=== PATIENT | female | born 1985 | race American Indian/Alaskan Native ===

== ENCOUNTER 2019-05-31 18:04 | Emergency (ER) | payer MEDICAID ==
--- NOTE | 2019-05-31 18:54 | Event Note ---
ED Screening Note Date of service: 05/31/19 Time: 18:53 ED Screening Note: 33 yo F with right sided pelvic pain x 2 days. Denies vaginal discharge, bleeding, frequency, dysuria. LMP 03/31/19. This initial assessment/diagnostic orders/clinical plan/treatment(s) is/are subject to change based on patients health status, clinical progression and re- assessment by fellow clinical providers in the ED. Further treatment and workup at subsequent clinical providers discretion. Patient/guardian urged not to elope from the ED as their condition may be serious if not clinically assessed and managed. Initial orders include: UA UPT
[2019-05-31 19:55] LABS: Bilirubin,Urine NEG (Negative); Blood,Urine SM (Negative); Color,Urine Yellow (Yellow); HCG Qualitative,Urine Negative (Negative); Mucus,Urine 3+ /HPF; Protein,Urine <15 mg/dL mg/dL (Negative)
--- NOTE | 2019-05-31 23:25 | Emergency Department Report ---
ED Female HPI - General Chief complaint: Urogenital-Female Stated complaint: PELVIC PAIN, VAGINAL BURNING Time Seen by Provider: 05/31/19 22:16 Source: patient Mode of arrival: Ambulatory Limitations: No Limitations - History of Present Illness Initial comments: Patient is a 33-year-old female presents emergency room with complaints of pelvic pain that began 2 days ago. She has associated vaginal burning. She denies any dysuria, vaginal discharge, lesions or blisters, abdominal pain, fever, nausea, vomiting, diarrhea, urinary symptoms. She denies any past medical history. She denies any allergies medications. She states her last menstrual cycle was March 31, 2019. she states she took a test at home and it was negative. - Related Data Allergies Allergy/AdvReac Type Severity Reaction Status Date / Time No Known Allergies Allergy Unverified 05/31/19 18:17 ED Review of Systems ROS: Stated complaint: PELVIC PAIN, VAGINAL BURNING Other details as noted in HPI Comment: All other systems reviewed and negative ED Past Medical Hx - Past Medical History Previous Medical History?: No - Surgical History Past Surgical History?: No - Social History Smoking Status: Never Smoker Substance Use Type: Alcohol ED Physical Exam - General Limitations: No Limitations General appearance: alert, in no apparent distress - Head Head exam: Present: atraumatic, normocephalic - Eye Eye exam: Present: normal appearance - ENT ENT exam: Present: mucous membranes moist - Respiratory Respiratory exam: Present: normal lung sounds bilaterally. Absent: respiratory distress, wheezes, rales, rhonchi, stridor, chest wall tenderness, accessory muscle use, decreased breath sounds, prolonged expiratory - Cardiovascular Cardiovascular Exam: Present: regular rate, normal rhythm, normal heart sounds. Absent: systolic murmur, diastolic murmur, rubs, gallop - GI/Abdominal GI/Abdominal exam: Present: soft, normal bowel sounds. Absent: distended, tenderness, guarding, rebound, rigid - External exam: Present: normal external exam. 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 Absent: erythema, vaginal bleeding, foreign body, tissue, laceration Bi-manual exam: Present: adnexal tenderness (right sided). Absent: cervical motion tendernes, adnexal mass - Neurological Exam Neurological exam: Present: alert, oriented X3 - Psychiatric Psychiatric exam: Present: normal affect, normal mood - Skin Skin exam: Present: warm, dry, intact ED Course Vital Signs 05/31/19 06/01/19 18:48 01:44 Temperature 98.4 F Pulse Rate 81 86 Respiratory 18 18 Rate Blood Pressure 109/68 Blood Pressure 112/76 [Left] O2 Sat by Pulse 98 100 Oximetry ED Medical Decision Making - Lab Data Lab Results 05/31/19 Range/Units 19:30 Urine Color Yellow (Yellow) Urine Turbidity Slightly-cloudy (Clear) Urine pH 6.0 (5.0-7.0) Ur Specific [place] 1.033 H (1.003-1.030) Urine Protein <15 mg/dl (Negative) mg/dL Urine Glucose (UA) Neg (Negative) mg/dL Urine Ketones Neg (Negative) mg/dL Urine Blood Sm (Negative) Urine Nitrite Neg (Negative) Urine Bilirubin Neg (Negative) Urine Urobilinogen 2.0 (<2.0) mg/dL Ur Leukocyte Esterase Neg (Negative) Urine WBC (Auto) 3.0 (0.0-6.0) /HPF Urine RBC (Auto) 9.0 (0.0-6.0) /HPF U Epithel Cells (Auto) 4.0 (0-13.0) /HPF Urine Mucus 3+ /HPF Urine HCG, Qual Negative (Negative) - Radiology Data Radiology results: report reviewed Pelvic Ultrasound HISTORY: right adnexal TTP. TECHNIQUE: Grayscale and color Doppler imaging performed. COMPARISON: None FINDINGS: Transabdominal and endovaginal imaging was performed. Uterus measures 8.2 x 4.0 x 5.6 cm with endometrial echo complex measuring 1.4 cm. Tiny nabothian cyst is identified. Left ovary is not visualized. The right ovary appears unremarkable. No pelvic free fluid identified. IMPRESSION: 1. Left ovary not visualized on this exam. Otherwise nothing acute identified. 2. Mild thickening of the endometrial complex can be normal depending on stage in cycle and correlation with history is recommended. Signer Name: Kavon Kong MD Signed: 06/01/2019 12:20 AM Workstation Name: [id number] Transcribed By: MARION Dictated By: Kavon Kong MD Electronically Authenticated By: Kavon Kong MD Signed Date/Time: 06/01/1919 DD/ 0018 TD/TT: - Medical Decision Making Patient is a 33-year-old female presents emergency room with complaints of pelvic pain that began 2 days ago. She has associated vaginal burning. She denies any dysuria, vaginal discharge, lesions or blisters, abdominal pain, fever, nausea, vomiting, diarrhea, urinary symptoms. She denies any past medical history. She denies any allergies medications. She states her last menstrual cycle was March 31, 2019. she states she took a test at home and it was negative. vitals are normal. on exam: clear mucus vaginal/cervix discharge, right adnexal TTP, shaper machine hand: LUISA mckeon. urine preg negative. UA without evidence of UTI. wet prep is normal. G/C swab sent, offered pt prophylactic tx and she politely declined and states she would like to wait until her results come back to see if she needs treatment. due to adnexal TTP, US pelvis performed and shows: 1. Left ovary not visualized on this exam. Otherwise nothing acute identified.2. Mild thickening of the endometrial complex can be normal depending on stage in cycle and correlation with history is recommended. Discussed results with patient and advised patient that she would need to be seen by an CT SCAN TECHNICIAN for endometrial thickening. She verbalized understanding. advised pt Please follow-up with an CT SCAN TECHNICIAN in the next 2-3 days. Please have a full STD panel performed by the CT SCAN TECHNICIAN. 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 avoid sexual intercourse until you have been tested. have partner tested and treated as well. Please follow-up with a primary care doctor. May take Tylenol or ibuprofen for any discomfort. Return to the emergency room for any new or worsening symptoms. - Differential Diagnosis PID, TOA, ovarian torsion, UTI, IUP, STD, ectopic, vaginitis, BV, yeast Critical care attestation.: If time is entered above; I have spent that time in minutes in the direct care of this critically ill patient, excluding procedure time. ED Disposition Clinical Impression: Pelvic pain, Vaginal burning, Endometrial thickening on ultrasound Disposition: TO HOME OR SELFCARE Is pt being admited?: No Does the pt Need Aspirin: No Condition: Stable Additional Instructions: Please follow-up with an CT SCAN TECHNICIAN in the next 2-3 days. Please have a full STD panel performed by the CT SCAN TECHNICIAN. 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 avoid sexual intercourse until you have been tested. have partner tested and treated as well. Please follow-up with a primary care doctor. May take Tylenol or ibuprofen for any discomfort. Return to the emergency room for any new or worsening symptoms. Referrals: RUDDY FERNANDEZ [Other] - 2-[address] [facility] [Provider Group] - 2-[address] [facility] [Provider Group] - 2-3 Days [facility] [Provider Group] - 2-3 Days Time of Disposition: 01:03 Print Language: KENYAN
--- NOTE | 2019-06-01 00:24 | Ultrasound Report ---
Pelvic Ultrasound HISTORY: right adnexal TTP. TECHNIQUE: Grayscale and color Doppler imaging performed. COMPARISON: None FINDINGS: Transabdominal and endovaginal imaging was performed. Uterus measures 8.2 x 4.0 x 5.6 cm with endometrial echo complex measuring 1.4 cm. Tiny nabothian cys t is identified. Left ovary is not visualized. The right ovary appears unremarkable. No pelvic free f luid identified. IMPRESSION: 1. Left ovary not visualized on this exam. Otherwise nothing acute identified. 2. Mild thickening of the endometrial complex can be normal depending on stage in cycle and correlati on with history is recommended. Signer Name: Kavon Kong MD Signed: 06/01/2019 12:20 AM Workstation Name: [id number]
[2019-06-01 01:45] VITALS: BP 112/76
== END 2019-06-01 01:45 | disposition home or self-care (01) ==
LOC: ED 18:04
DX: N89.8 Other specified noninflammatory disorders of vagina (principal); R10.2 Pelvic and perineal pain; R93.89 Abnormal findings on diagnostic imaging of other specified body structures; F10.10 Alcohol abuse, uncomplicated
CPT/HCPCS: 76830; 76856; 81001; 81025; 87210; 87591

== ENCOUNTER 2019-12-18 19:48 | Emergency (ER) | payer MEDICAID ==
[2019-12-18 20:14] VITALS: BP 117/77
[2019-12-19] MEDS ORDERED: ACETAMINOPHEN 500 MG TAB PO ONE (01:37)
[2019-12-19] MEDS ORDERED: BENZONATATE 100 MG CAP PO ONE (01:37)
[2019-12-19] MEDS ORDERED: LIDOCAINE VISCOUS 2% 15 ML ORAL LIQD MM ONE (01:38)
--- NOTE | 2019-12-19 02:08 | XRay Report ---
CHEST 2 VIEWS INDICATION / CLINICAL INFORMATION: cough. COMPARISON: None available. FINDINGS: SUPPORT DEVICES: None. HEART / MEDIASTINUM: No significant abnormality. LUNGS / PLEURA: No significant pulmonary or pleural abnormality. No pneumothorax. ADDITIONAL FINDINGS: No significant additional findings. IMPRESSION: 1. No acute findings. Signer Name: Renetta Sheth MD Signed: 12/19/2019 2:04 AM Workstation Name: [id number]
--- NOTE | 2019-12-19 02:29 | Emergency Department Report ---
Upper Respiratory HPI - HPI Chief Complaint: Sore Throat Stated Complaint: SORE THROAT/BODYACHES/CONGESTION Time Seen by Provider: 12/19/19 00:48 Duration: 2 Days URI Symptoms: Rhinorrhea: Yes, Sore Throat: Yes, Ear Pain: No, Cough: Yes, Shortness of Breath: Yes, Sick Contacts: No, Unable to Take Fluids: No, Urine Output Abnormal: No, Listless Behavior: No Other History: This is a 34-year-old female nontoxic, well nourished in appearance, no acute signs of distress presents to the ED with c/o of productive cough, subective fever, chills, body aches, rhinorrhea, some mild SOB, sore throat, nasal congestion x2 days. Patient describes productive cough as yellow mucus production. Patient denies any sick contacts. Patient denies any recent travels, long car, recent hospital stays. Patient denies any calf pain or calf tenderness. Patient denies any chest pain, nausea, vomiting, hemoptysis, numbness, tingling, headache or stiff neck. Denies any allergies. - Home Meds and Allergies Home Medications: Previous Rx's Medication Instructions Recorded Last Taken Type Acetaminophen [Acetaminophen 8 650 mg PO Q8H PRN #20 tablet.er 12/19/19 Unknown Rx Hour] Azithromycin [Zithromax Z-LUZMARIA] 250 mg PO DAILY #6 tablet 12/19/19 Unknown Rx Benzonatate [Tessalon Perles] 100 mg PO Q8HR PRN #12 capsule 12/19/19 Unknown Rx Allergies/Adverse Reactions: Allergies Allergy/AdvReac Type Severity Reaction Status Date / Time No Known Allergies Allergy Unverified 05/31/19 18:17 ED Review of Systems ROS: Stated complaint: SORE THROAT/BODYACHES/CONGESTION Other details as noted in HPI Constitutional: chills, fever Eyes: denies: eye pain, eye discharge, vision change ENT: throat pain, congestion. denies: ear pain Respiratory: cough, shortness of breath. denies: wheezing Cardiovascular: denies: chest pain, palpitations Endocrine: no symptoms reported Gastrointestinal: denies: abdominal pain, nausea, diarrhea Genitourinary: denies: urgency, dysuria, discharge Musculoskeletal: denies: back pain, joint swelling, arthralgia Skin: denies: rash, lesions Neurological: denies: headache, weakness, paresthesias Psychiatric: denies: anxiety, depression Hematological/Lymphatic: denies: easy bleeding, easy bruising ED Past Medical Hx - Past Medical History Previous Medical History?: No - Surgical History Past Surgical History?: No - Social History Smoking Status: Never Smoker Substance Use Type: None - Medications Home Medications: Home Medications Medication Instructions Recorded Confirmed Last Taken Type Acetaminophen [Acetaminophen 8 650 mg PO Q8H PRN #20 tablet.er 12/19/19 Unknown Rx Hour] Azithromycin [Zithromax Z-LUZMARIA] 250 mg PO DAILY #6 tablet 12/19/19 Unknown Rx Benzonatate [Tessalon Perles] 100 mg PO Q8HR PRN #12 capsule 12/19/19 Unknown Rx ED Bronchiolitis Physical Exam - Exam General: Vital signs noted. No distress. Alert and acting appropriately. Neurologic: Alert and oriented, no deficits. Musculoskeletal: Unremarkable. ED Bronchiolitis Tests - Testing Testing: CXR: Normal/Negative ED Physical Exam - General Limitations: No Limitations General appearance: alert, in no apparent distress - Head Head exam: Present: atraumatic, normocephalic - Eye Eye exam: Present: normal appearance - Expanded ENT Exam Expanded Ear exam: Present: normal external inspection Mouth exam: Present: normal external inspection. Absent: drooling, trismus, muffled voice Teeth exam: Present: normal inspection Throat exam: Positive: tonsillar erythema. Negative: tonsillomegaly, tonsillar exudate, R peritonsillar mass, L peritonsillar mass - Neck Neck exam: Present: normal inspection, full ROM. Absent: tenderness, meningismus, lymphadenopathy - Respiratory Respiratory exam: Present: normal lung sounds bilaterally. Absent: respiratory distress, wheezes, rales, rhonchi, stridor, chest wall tenderness, accessory muscle use, decreased breath sounds, prolonged expiratory - Cardiovascular Cardiovascular Exam: Present: regular rate, normal rhythm, normal heart sounds. Absent: bradycardia, tachycardia, irregular rhythm, systolic murmur, diastolic murmur, rubs, gallop - Extremities Exam Extremities exam: Present: normal inspection, full ROM - Back Exam Back exam: Present: normal inspection, full ROM. Absent: tenderness, CVA tenderness (R), CVA tenderness (L), muscle spasm, paraspinal tenderness, vertebral tenderness, rash noted - Neurological Exam Neurological exam: Present: alert, oriented X3, normal gait - Psychiatric Psychiatric exam: Present: normal affect, normal mood - Skin Skin exam: Present: warm, dry, intact, normal color. Absent: rash ED Course Vital Signs 12/18/19 20:11 Temperature 98.3 F Pulse Rate 86 Respiratory 20 Rate Blood Pressure 117/77 O2 Sat by Pulse 99 Oximetry - Reevaluation(s) Reevaluation #1: 12/19/19 02:27 Patient is speaking in full sentences with no signs of distress noted. ED Medical Decision Making - Radiology Data Referring Physician: ARIELLE FLOYD Patient Name: PIERO LOUIE Date of : 1985 Sex: Female Report Date: 2019-12-19 Report Status: [place] [address] XRay Report Signed Patient: PIERO LOUIE MR #: [id number] : 1985 Acct:[id number] Age/Sex: 34 / F ADM Date: 12/18/19 Loc: ED Attending Dr: Ordering Physician: ARIELLE FLOYD NP Date of Service: 12/19/19 Procedure(s): XR chest routine 2V Accession Number(s): [id number] cc: ARIELLE FLOYD NP Fluoro Time In Minutes: CHEST 2 VIEWS INDICATION / CLINICAL INFORMATION: cough. COMPARISON: None available. FINDINGS: SUPPORT DEVICES: None. HEART / MEDIASTINUM: No significant abnormality. LUNGS / PLEURA: No significant pulmonary or pleural abnormality. No pneumothorax. ADDITIONAL FINDINGS: No significant additional findings. IMPRESSION: 1. No acute findings. Signer Name: Renetta Sheth MD Signed: 12/19/2019 2:04 AM Workstation Name: [id number] Transcribed By: Dictated By: Renetta Sheth MD Electronically Authenticated By: Renetta Sheth MD Signed Date/Time: 12/19/19 0204 - Medical Decision Making This is a 34-year-old female that presents with suspected COVID and pharyngitis. Patient is stable and was examined by me. Chest x-ray has been obtained and dictated by radiologist with normal exam. Patient is notified of x-ray results with no questions noted. Patient was instructed and educated on signs and symptoms and to self quarantine and seek medical attention as soon as possible if symptoms worsen. PAtient refused Tylenol or any other treatment due to stated that her mom told her to see her PCP rather then getting treatment as it can worsen possible COVID. Patient was educated that Tylenol is safe for COVID but patient still refused. Unable to reevaluate patient due to patient signing AMA. At time time of signing AMA, the patient does not seem toxic or ill in appearance. No acute signs of distress noted. No further questions noted by the patient.nt. Critical care attestation.: If time is entered above; I have spent that time in minutes in the direct care of this critically ill patient, excluding procedure time. ED Disposition Clinical Impression: Suspected COVID-19 virus infection Pharyngitis Qualifiers: Pharyngitis/tonsillitis etiology: unspecified etiology Qualified Code(s): J02.9 - Acute pharyngitis, unspecified Disposition: - TO HOME OR SELFCARE Is pt being admited?: No Does the pt Need Aspirin: No Condition: Stable Instructions: COVID-19, Pharyngitis (ED) Additional Instructions: Follow-up with a primary care doctor in 3-5 days or if symptoms worsen and continue return to emergency room as soon as possible. Prescriptions: Acetaminophen [Acetaminophen 8 Hour] 650 mg PO Q8H PRN #20 tablet.er PRN Reason: cough/fever Benzonatate [Tessalon Perles] 100 mg PO Q8HR PRN #12 capsule PRN Reason: Cough Azithromycin [Zithromax Z-LUZMARIA] 250 mg PO DAILY #6 tablet Referrals: PRIMARY MD MARTHA [Primary Care Provider] - 3-5 Days SLOANE SCHMIDT MD [Staff Physician] - 3-5 Days Forms: Work/School Release Form(ED)
== END 2019-12-19 03:21 | disposition home or self-care (01) ==
LOC: ED 19:48
DX: J02.9 Acute pharyngitis, unspecified (principal); Z20.828 Contact with and (suspected) exposure to other viral communicable diseases; Z79.899 Other long term (current) drug therapy
CPT/HCPCS: 71046; 87116; 87430

== ENCOUNTER 2020-02-26 20:52 | Emergency (ER) | payer MEDICAID ==
[2020-02-26 21:57] VITALS: BP 115/80
[2020-02-27] MEDS ORDERED: LIDOCAINE (1%) 10 MG/1 ML VIAL 20 ML MDV INFILTRATI ONE (04:15)
== END 2020-02-27 05:50 | disposition home or self-care (01) ==
LOC: ED 20:52
DX: S61.412A Laceration without foreign body of left hand, initial encounter (principal); Z53.21 Procedure and treatment not carried out due to patient leaving prior to being seen by health care provider; W26.0XXA Contact with knife, initial encounter; Y93.89 Activity, other specified; Y92.89 Other specified places as the place of occurrence of the external cause; Y99.8 Other external cause status